=== PATIENT | female | born 1985 | race Caucasian/White ===

== ENCOUNTER 2020-07-29 09:55 | Emergency (ER) | payer OTHER ==
[~2020-07-29] VITALS: Ht 160 cm; Wt 51.4 kg
--- NOTE | 2020-07-29 10:17 | PHYS DOC ---
Past History Past Medical History: Anxiety, Depression, Endometriosis Alcohol Use: None General Adult EDM: Chief Complaint: BACK PAIN OR INJURY HPI: HPI: 34-year-old female past medical history significant for anxiety/depression and endometriosis, presents to the ED with complaints of low back pain (point to her coccyx) that is sharp and radiates up to the base of her lumbar spine for the past 2 days. Reports paresthesias in her left buttock when she sits down in a seated position or is walking for prolonged period of time (is currently lying in right lateral recumbent position). No relief with hydrocodone that she took at 2 AM. Denies any trauma, falls, increased physical activity or heavy lifting, straddle injury or prior back pain. Has never had these symptoms before. Denies any IV drug use, immunocompromised state including diabetes or cancer, IV drug use, incarceration. No associated fever, saddle anesthesia, urinary or bowel retention or incontinence. Moved to [place] from [place] 1 year ago. PCP is with [facility] and prescribes her 30 tablets of hydrocodone every month, maximum of 2 tablets/day, qam/qhs. Routinely uses all her hydrocodone every month - reports no intolerance/relieves her endometriosis pain. No known family history of cancer or malignancy. Mother with history of iron deficiency anemia. Reports foul-smelling vaginal discharge 2 weeks ago that has resolved. Reports metromenorrhagia and is on daily control pills, " with breakthrough bleeding, I never take the sugar ones." Reports abdominal/pelvic cramping which is consistent with her typical endometriosis. Also reports loose stools routinely with vaginal bleeding. No recent antibiotics in the past 90 days. Review of Systems: Review of Systems: Constitutional: Denies fever or chills or flulike symptoms Eyes: Denies change in visual acuity HENT: Denies nasal congestion or sore throat Respiratory: Denies cough or shortness of breath Cardiovascular: Denies chest pain or edema GI: Denies nausea, vomiting, bloody stools or : Denies dysuria, hematuria or abnormal vaginal discharge itching or odor Musculoskeletal: Denies joint pain or swelling no CVA tenderness Integument: Denies rash or diaphoresis Neurologic: Denies headache, neck stiffness, focal weakness or sensory changes Endocrine: Denies polyuria or polydipsia Lymphatic: Denies swollen glands Psychiatric: Denies depression or anxiety Allergies: Allergies: Allergies Coded Allergies Type Severity Reaction Last Updated Verified Penicillins Allergy Unknown 07/29/20 Yes codeine Allergy Unknown 07/29/20 Yes Physical Exam: PE: Constitutional: Well developed, well nourished, no acute distress, non-toxic appearance. HENT: Normocephalic, atraumatic, Eyes: EOMI, conjunctiva normal, no discharge. Neck: Normal range of motion, supple, Cardiovascular: S1/2 present, regular rhythm Lungs & Thorax: Speaking in full sentences, bilateral equal chest rise, no tachypnea or increased work of breathing Abdomen: soft, no tenderness, Skin: Warm, dry, no erythema, no rash. [] Back: No tenderness, no CVA tenderness. [] Extremities: No tenderness, no cyanosis, no lower extremity edema Neurologic: Alert and oriented X 3, normal motor function, normal sensory function, no focal deficits noted. [] Psychologic: Affect normal, judgement normal, mood normal. [] Pelvic: Chaperoned by RN, external genitalia normal, no vaginal bleeding, normal nonmalodorous [color] discharge, cervical os closed, no cervical erythema, no CMT or adnexal tenderness, tolerated exam well Current Patient Data: Vital Signs: Vital Signs Date Time Temp Pulse Resp B/P (MAP) Pulse Ox O2 Delivery O2 Flow Rate FiO2 07/29/20 09:55 98.2 103 16 143/78 (99) 100 Room Air EKG: EKG: [] Radiology/Procedures: Radiology/Procedures: IMAGING REPORT Signed PATIENT: EVANGELINA CACERES ACCOUNT: [id number] : 1985 LOCATION: ER AGE: 34 SEX: F EXAM STATUS: REG ER ORD. PHYSICIAN: LEATHA GARG DO REASON: focal coccyx pain PROCEDURE: SACRUM & COCCYX 3V EXAM: XR SACRUM AND COCCYX 2+VIEWS 07/29/2020 10:37 AM CLINICAL INDICATION: Coccyx pain COMPARISON: None TECHNIQUE: 3 views of the sacrum and coccyx FINDINGS: No acute fracture. Sacroiliac joints and lower lumbar spine are no rmal. The hips and pubic symphysis are normal. IMPRESSION: Normal radiographic sacrum and coccyx. Electronically signed by: Evangelina Thomas MD (07/29/2020 10:59 AM) [id number] DICTATED AND SIGNED BY: EVANGELINA THOMAS MD DATE: 07/29/20 1057 CC: PCP,UNKNOWN; LEATHA GARG DO ~MTH0 0 IMAGING REPORT Signed PATIENT: EVANGELINA CACERES ACCOUNT: [id number] : 1985 LOCATION: ER AGE: 34 SEX: F EXAM STATUS: REG ER ORD. PHYSICIAN: LEATHA GARG DO REASON: cocyx back/lower abd pain PROCEDURE: CT ABD PELV W/ IV CONTRST ONLY EXAM: Abdomen and pelvis CT with intravenous contrast. HISTORY: Pain. TECHNIQUE: Computed tomographic images of the abdomen and pelvis were obtained following the administration of intravenous contrast. Multiplanar reformatting was performed. *One or more of the following individualized dose reduction techniques were utilized for this examination: 1. Automated exposure control. 2. Adjustment of the mA and/or kV according to patient size. 3. Use of iterative reconstruction technique. COMPARISON: Pelvic sonogram obtained on the same date. FINDINGS: Evaluation of the lower thorax is unremarkable. No hepatic lesion is seen. The gallbladder, pancreas, spleen, adrenal glands and kidneys are unremarkable. There is no appendicitis. There is no bowel obstruction. There is no abnormal bowel wall thickening. The uterus is unremarkable. There are small bilateral ovarian follicles and there is trace pelvic free fluid. This is within physiologic limits. There is an incidental left-sided inferior vena cava. There are is a varicosity within the right lumbar paraspinal musculature which is likely related to the absence of a right-sided vena cava. There is a transitional lumbosacral segment, a normal variant. There is no suspicious or acute osseous finding. IMPRESSION: No acute abdominal or pelvic finding. Electronically signed by: Deedee Carolina MD (07/29/2020 1:30 PM) [id number] DICTATED AND SIGNED BY: DEEDEE CAROLINA MD DATE: 07/29/20 1326 CC: PCP,UNKNOWN; LEATHA GARG DO ~MTH0 0 Signed PATIENT: EVANGELINA CACERES ACCOUNT: [id number] : 1985 LOCATION: ER AGE: 34 SEX: F EXAM STATUS: REG ER ORD. PHYSICIAN: LEATHA GARG DO REASON: left adnexal ttp, low back pain PROCEDURE: US PELVIS W/TV EXAM: Pelvic sonogram. HISTORY: Left adnexal pain. TECHNIQUE: Transabdominal and transvaginal sonographic imaging of the pelvis was performed. COMPARISON: None. FINDINGS: The uterus measures 6.5 x 4.3 x 3.3 cm. The endometrial stripe measures 5 mm in thickness. The ovaries are normal in size and demonstrate normal blood flow. There are small antral follicles within both ovaries. No ovarian cyst or mass is seen. There is a small amount of simple free fluid within the cul-de-sac. IMPRESSION: 1. Small amount of pelvic free fluid, within physiologic limits for a premenopausal female. 2. Otherwise, unremarkable pelvic sonogram. Electronically signed by: Deedee Carolina MD (07/29/2020 1:11 PM) [id number] DICTATED AND SIGNED BY: DEEDEE CAROLINA MD DATE: 07/29/20 131 CC: PCP,UNKNOWN; LEATHA GARG DO ~MTH0 0 Heart Score: Risk Factors: Risk Factors: DM, Current or recent (<one month) smoker, HTN, HLP, family histo ry of CAD, obesity. Risk Scores: Score 0 - 3: 2.5% MACE over next 6 weeks - Discharge Home Score 4 - 6: 20.3% MACE over next 6 weeks - Admit for Clinical Observation Score 7 - 10: 72.7% MACE over next 6 weeks - Early Invasive Strategies Course & Med Decision Making: Course & Med Decision Making Pertinent Labs and Imaging studies reviewed. (See chart for details) Atraumatic coccyx radicular pain w/paresthesias. U/A no infection, trace blood/is on her menses, not . Xray imaging w/no acute process as expected. Will discharge home with strict ED return precautions were given for saddle anesthesia, urinary or bowel retention or incontinence, fever, neck stiffness, or severe pain out of proportion to exam. Encouraged urgent outpatient follow-up with [facility] and [facility]. Life-threatening processes were considered but are low suspicion at this time, given history, physical exam and ED workup. Pt was educated on all prescription medications and adverse effects. All patient's questions were answered and pt was stable at time of discharge. Life/limb-threatening differential includes but is not limited to, aortic dissection/aneurysm, cauda equina syndrome, transverse myelitis, spinal cord/epidural compression syndromes, discitis, spinal stenosis, epidural abscess or hematoma, osteomyelitis, disc herniation, surgical abdomen, stable or unstable fracture, renal/ureteral colic, sepsis, meningitis, musculoskeletal injury, traumatic injury, intraabdominal/retroperitoneal or pelvic bleeding. I spoken with the patient and her caregivers. I explained the patient's condition, diagnoses and treatment plan based on the information available to me at this time. I have answered the patient and her caregiver's questions and addressed any concerns. The patient and her caregivers have a good understanding of patient's diagnosis, condition and treatment plan as can be expected at this point. Vital signs have been stable. Patient's condition is stable and appropriate for discharge from the emergency department. Patient will pursue further outpatient evaluation with primary care physician or other designated or consulting physician as outlined in the discharge instructions. The patient and/or caregivers are agreeable to this plan of care and follow-up instructions have been explained in detail. The patient and/or caregivers have received these instructions in written form and have expressed an understanding of the discharge instructions. The patient and/or caregivers a re aware that any significant change of condition or worsening of symptoms should prompt immediate return to this or the closest emergency department or call to 911. Baljit Disclaimer: Baljit Disclaimer: This electronic medical record was generated, in whole or in part, using a voice recognition dictation system. Departure Departure: Impression: Primary Impression: Back pain Additional Impression: Endometriosis Disposition: 01 DC HOME SELF CARE/HOMELESS Condition: STABLE Referrals: PCP,UNKNOWN (PCP) FOLLOW UP WITH FAMILY MEDICINE: [facility], [facility] [address] [place] [address], [facility] Instructions: Back Pain, Adult, Endometriosis Additional Instructions: FOLLOW UP WITH OBGYN: [facility] [employer] [facility] [address] [place] [address] EMERGENCY DEPARTMENT GENERAL DISCHARGE INSTRUCTIONS Thank you for coming to [facility] (ED) today and trusting us with you care. We trust that you had a positivie experience in our Emergency Department. If you wish to speak to the department management, you may call the director at [phone]. YOUR FOLLOW UP INSTRUCTIONS ARE FOLLOWS: 1. Do you have a private Doctor? If you do not have a private doctor, please ask for a resource list of physicians or clinics that may be able to assist you with follow up care. 2. The Emergency Physician has interpreted your x-rays. The X-Ray specialist will also review them. If there is a change in the findings, you will be notified in 48 hours when at all possible. 3. A lab test or culture has been done, your results will be reviewed and you will be notified if you need a change in treatment. ADDITIONAL INSTRUCTIONS AND INFORMATION: 1. Your care today has been supervised by a physician who is specially trained in emergency care. Many problems require more than one evaluation for a complete diagnosis and treatment. We recommend that you schedule your follow up appointment as recommended to ensure complete treatment of you illness or injury. If you are unable to obtain follow up care and continue to have a problem, or if your condition worsens, we recommend that you return to the ED. 2. We are not able to safely determine your condition over the phone nor are we able to give sound medical advice over the phone. For these safety reasons, if you call for medical advice we will ask you to come to the ED for further evaluation. 3. If you have any questions regarding these discharge instructions please call the ED at [phone]. SAFETY INFORMATION: In the interest of safety, wellness, and injury prevention; we encourage you to wear your sealbelt, if you smoke; quite smoking, and we encourage family to use a p rotective helmet for bicycling and other sporting events that present an increased risk for head injury. IF YOUR SYMPTOMS WORSEN OR NEW SYMPTOMS DEVELOP, OR YOU HAVE CONCERNS ABOUT YOUR CONDITION; OR IF YOUR CONDITION WORSENS WHILE YOU ARE WAITING FOR YOUR FOLLOW UP APPOINTMENT; EITHER CONTACT YOUR PRIMARY CARE DOCTOR, THE PHYSICIAN WHOSE NAME AND NUMBER YOU WERE GIVEN, OR RETURN TO THE ED IMMEDIATELY. Scripts Cyclobenzaprine Hcl (CYCLOBENZAPRINE HCL) 5 Mg Tablet 1 TAB PO TID for pain, #20 TAB Prov: LEATHA GARG DO 07/29/20 LEATHA GARG DO Jul 29, 2020 10:17
[2020-07-29] MEDS ORDERED: GABAPENTIN 100 MG CAPSULE. PO ONE (10:30)
[2020-07-29] MEDS ORDERED: KETOROLAC 15 MG/ML VIAL. IM ONE (10:30)
[2020-07-29] MEDS ORDERED: ACETAMINOPHEN 325 MG TABLET PO ONE (10:30)
[2020-07-29 10:53] LABS: BACTERIA,URINE 0 /HPF (0-FEW); BILIRUBIN,URINE NEG (NEG); CLARITY,URINE CLEAR; COLOR,URINE STRAW; GLUCOSE,URINE NEG (NEG); NITRITE,URINE NEG (NEG); RBC,URINE 0 /HPF (0-2); SQUAMOUS EPITHELIAL CELL,UR FEW /LPF; UROBILINOGEN,URINE 0.2 mg/dL (0.2 mg/dL); WBC,URINE 0 /HPF (0-4)
[2020-07-29] MEDS ORDERED: LIDOCAINE (700MG/PATCH) PATCH. TD SCH (11:00)
--- NOTE | 2020-07-29 11:01 | RAD ---
EXAM: XR SACRUM AND COCCYX 2+VIEWS 07/29/2020 10:37 AM CLINICAL INDICATION: Coccyx pain COMPARISON: None TECHNIQUE: 3 views of the sacrum and coccyx FINDINGS: No acute fracture. Sacroiliac joints and lower lumbar spine are normal. The hips and pubic symphysis are normal. IMPRESSION: Normal radiographic sacrum and coccyx. Electronically signed by: Evangelina Thomas MD (07/29/2020 10:59 AM) [id number]
[2020-07-29] MEDS ORDERED: ONDANSETRON 4MG ODT 4TABLET STARTPACK. PO ONE (11:10)
[2020-07-29] MEDS ORDERED: ONDANSETRON ODT 4 MG TAB.RAPDIS ONE (11:10)
[2020-07-29] MEDS ORDERED: ONDANSETRON ODT 4 MG TAB.RAPDIS PO ONE (11:15)
[2020-07-29] MEDS ORDERED: IOHEXOL 300 MG/ML 75 ML VIAL. IV ONE (13:00)
[2020-07-29] MEDS ORDERED: CONTRAST GIVEN. MC PRN (13:00)
[2020-07-29 13:01] LABS: BASO % 1 % (0-3); EOS % 1 % (0-3); HEMATOCRIT 39.6 % (36.0-47.0); HEMOGLOBIN 13.5 g/dL (12.0-15.5); LYMPH # 1.3 x10^3/uL (1.0-4.8); LYMPH % 20 % (24-48); MEAN CORPUSCULAR HEMOGLOBIN 32 pg (25-35); MEAN CORPUSCULAR HGB CONC 34 g/dL (31-37); MEAN CORPUSCULAR VOLUME 93 fL (79-100); MONO # 0.4 x10^3/uL (0.0-1.1); MONO % 6 % (0-9); NEUT # 4.9 x10^3uL (1.8-7.7); NEUT % 73 % (31-73); PLATELET COUNT 343 x10^3/uL (140-400); RED BLOOD COUNT 4.28 x10^6/uL (3.50-5.40); RED CELL DISTRIBUTION WIDTH 12.7 % (11.5-14.5); WHITE BLOOD COUNT 6.6 x10^3/uL (4.0-11.0)
[2020-07-29 13:08] LABS: CALCIUM 8.7 mg/dL (8.5-10.1); CREATININE 0.8 mg/dL (0.6-1.0); GFR 83.1; POTASSIUM 3.9 mmol/L (3.5-5.1)
[2020-07-29 13:14] LABS: ALBUMIN 3.9 g/dL (3.4-5.0); ALBUMIN/GLOBULIN RATIO 1.1 (1.0-1.7); TOTAL BILIRUBIN 0.3 mg/dL (0.2-1.0); TOTAL PROTEIN 7.6 g/dL (6.4-8.2)
--- NOTE | 2020-07-29 13:14 | RAD ---
EXAM: Pelvic sonogram. HISTORY: Left adnexal pain. TECHNIQUE: Transabdominal and transvaginal sonographic imaging of the pelvis was performed. COMPARISON: None. FINDINGS: The uterus measures 6.5 x 4.3 x 3.3 cm. The endometrial stripe measures 5 mm in thickness. The ovaries are normal in size and demonstrate normal blood flow. There are small antral follicles wi thin both ovaries. No ovarian cyst or mass is seen. There is a small amount of simple free fluid with in the cul-de-sac. IMPRESSION: 1. Small amount of pelvic free fluid, within physiologic limits for a premenopausal female. 2. Otherwise, unremarkable pelvic sonogram. Electronically signed by: Deedee Bryson MD (07/29/2020 1:11 PM) [id number]
--- NOTE | 2020-07-29 13:33 | RAD ---
EXAM: Abdomen and pelvis CT with intravenous contrast. HISTORY: Pain. TECHNIQUE: Computed tomographic images of the abdomen and pelvis were obtained following the administ ration of intravenous contrast. Multiplanar reformatting was performed. *One or more of the following individualized dose reduction techniques were utilized for this examina tion: 1. Automated exposure control. 2. Adjustment of the mA and/or kV according to patient size. 3. Use of iterative reconstruction technique. COMPARISON: Pelvic sonogram obtained on the same date. FINDINGS: Evaluation of the lower thorax is unremarkable. No hepatic lesion is seen. The gallbladder, pancreas, spleen, adrenal glands and kidneys are unremarkable. There is no appendicitis. There is no bowel obstruction. There is no abnormal bowel wall thickening. The uterus is unremarkable. There are small bilateral ovarian follicles and there is trace pelvic free fluid. This is within physiologic l imits. There is an incidental left-sided inferior vena cava. There are is a varicosity within the rig ht lumbar paraspinal musculature which is likely related to the absence of a right-sided vena cava. T here is a transitional lumbosacral segment, a normal variant. There is no suspicious or acute osseous finding. IMPRESSION: No acute abdominal or pelvic finding. Electronically signed by: Deedee Bryson MD (07/29/2020 1:30 PM) [id number]
[2020-07-29] MEDS ORDERED: CYCL5TAB PO (14:49)
[2020-07-29] MEDS ORDERED: oxyCODONE IR 5 MG TABLET PO PRN (15:00)
[2020-07-29 15:18] VITALS: BP 138/70
[2020-07-29] MEDS ORDERED: PATCH REMOVAL. MC SCH (21:00)
== END 2020-07-29 15:15 | disposition home or self-care (01) ==
LOC: ER 09:55
DX: M54.5 Low back pain (principal); N80.9 Endometriosis, unspecified; R20.2 Paresthesia of skin; F41.9 Anxiety disorder, unspecified; F32.9 Major depressive disorder, single episode, unspecified
CPT/HCPCS: 36415; 72220; 74177; 76830; 76856; 80053; 81001; 81025; 82550; 85025; 96372; 99285; J1885; Q0162; Q9967

== ENCOUNTER 2021-07-30 19:17 | Emergency (ER) | payer OTHER ==
[~2021-07-30] VITALS: Ht 160 cm; Wt 51.4 kg
[~2021-07-30 19:17] MED LIST: CYCL5TAB PO
[2021-07-30 20:08] LABS: U PREG PATIENT NEGATIVE (NEG)
[2021-07-30 20:12] LABS: BASO % 1 % (0-3); EOS # 0.1 x10^3/uL (0.0-0.7); EOS % 2 % (0-3); HEMATOCRIT 33.5 % (36.0-47.0); HEMOGLOBIN 11.4 g/dL (12.0-15.5); LYMPH # 2.3 x10^3/uL (1.0-4.8); LYMPH % 31 % (24-48); MEAN CORPUSCULAR HEMOGLOBIN 31 pg (25-35); MEAN CORPUSCULAR HGB CONC 34 g/dL (31-37); MEAN CORPUSCULAR VOLUME 91 fL (79-100); MONO # 0.6 x10^3/uL (0.0-1.1); MONO % 8 % (0-9); NEUT # 4.3 x10^3uL (1.8-7.7); NEUT % 58 % (31-73); PLATELET COUNT 336 x10^3/uL (140-400); RED BLOOD COUNT 3.69 x10^6/uL (3.50-5.40); RED CELL DISTRIBUTION WIDTH 12.5 % (11.5-14.5); WHITE BLOOD COUNT 7.4 x10^3/uL (4.0-11.0)
[2021-07-30 20:16] LABS: CLARITY,URINE CLEAR; COLOR,URINE YELLOW; GLUCOSE,URINE NEG (NEG); NITRITE,URINE NEG (NEG); UROBILINOGEN,URINE 0.2 mg/dL (0.2 mg/dL)
[2021-07-30 20:26] LABS: CALCIUM 8.2 mg/dL (8.5-10.1); CREATININE 0.6 mg/dL (0.6-1.0); GFR 115.1; POTASSIUM 3.5 mmol/L (3.5-5.1)
[2021-07-30 20:31] LABS: ALBUMIN 3.5 g/dL (3.4-5.0); TOTAL BILIRUBIN 0.1 mg/dL (0.2-1.0)
--- NOTE | 2021-07-30 21:44 | EKG ---
[address] [address] Test Date: 2021-07-30 Test Time: 20:29:27 Pat Name: MARIELA CACERES Department: Room: Gender: F [employer]er: : 1985 Requested By: SIENA WARD Order Number: [id number] Reading MD: Ricky Duran Measurements Intervals [place] Rate: 87 P: 43 MD: 160 QRS: 26 QRSD: 80 T: 15 QT: 360 QTc: 434 Interpretive Statements SINUS RHYTHM Electronically Signed On 07-31-2021 8:24:17 [employer] by Ricky Duran
[2021-07-30 22:01] VITALS: BP 135/78
--- NOTE | 2021-07-30 22:07 | PHYS DOC ---
Past History Past Medical History: Anxiety, Depression, Endometriosis (SIENA WARD APRN) Past Surgical History: No Surgical History (SIENA WARD APRN) Alcohol Use: None (SIENA WARD APRN) General Adult EDM: Chief Complaint: VAGINAL BLEEDING HPI: HPI: Patient is a[] 35-year-old female presents with concerns of vaginal bleeding. Patient states that she had intercourse 2 days ago and when she stood up she immediately started having lower abdominal pain. Patient reports that the pain lasted about 30 minutes and went away. Patient states the next day she started bleeding and it was not appropriate time for her period. Patient states that she has been changing her tampon every 2-3 hours. Denies dizziness, shortness of breath, chest pain. Denies dizziness, shortness of breath, chest pain. Denies dysuria, frequency, abnormal discharge or odor. History of anxiety, depression, endometriosis. (SIENA WARD APRN) Review of Systems: Review of Systems: ROS At least 10 ROS systems have been reviewed and are negative except as documented in the HPI. General: Negative except as outlined in HPI above. Skin: Negative except as outlined in HPI above. HEENT: Negative except as outlined in HPI above. Neck: Negative except as outlined in HPI above. Respiratory: Negative except as outlined in HPI above.. Cardiovascular: Negative except as outlined in HPI above. Abdomen: Negative except as outlined in HPI above. : Negative except as outlined in HPI above. Back/MSK: Negative except as outlined in HPI above. Neuro: Negative except as outlined in HPI above. Psych: Negative except as outlined in HPI above. (SIENA WARD APRN) Allergies: Allergies: Allergies Coded Allergies Type Severity Reaction Last Updated Verified Penicillins Allergy Unknown 07/29/20 Yes codeine Allergy Unknown 07/29/20 Yes (SIENA WARD APRN) Physical Exam: PE: Constitutional: Well developed, well nourished, no acute distress, non-toxic ap pearance. [] HENT: Normocephalic, atraumatic, bilateral external ears normal, oropharynx moist, no oral exudates, nose normal. [] Eyes: PERRLA, EOMI, conjunctiva normal, no discharge. [] Neck: Normal range of motion, no tenderness, supple, no stridor. [] Cardiovascular:Heart rate regular rhythm, no murmur [] Lungs & Thorax: Bilateral breath sounds clear to auscultation [] Abdomen/vaginal: Bowel sounds normal, soft, no tenderness, no masses, no pulsatile masses. No signs of trauma or lesions vaginally. Skin: Warm, dry, no erythema, no rash. [] Back: No tenderness, no CVA tenderness. [] Extremities: No tenderness, no cyanosis, no clubbing, ROM intact, no edema. [] Neurologic: Alert and oriented X 3, normal motor function, normal sensory function, no focal deficits noted. [] Psychologic: Affect normal, judgement normal, mood normal. [] (SIENA WARD APRN) Current Patient Data: Labs: Laboratory Tests Test 07/30/21 18:00 07/30/21 19:47 07/30/21 19:55 Urine Collection Type Unknown Urine Color Yellow Urine Clarity Clear Urine pH 6.5 Urine Specific [place] 1.025 Urine Protein Neg (NEG-TRACE) Urine Glucose (UA) Neg mg/dL (NEG) Urine Ketones (Stick) Neg mg/dL (NEG) Urine Blood Trace (NEG) Urine Nitrite Neg (NEG) Urine Bilirubin Neg (NEG) Urine Urobilinogen Dipstick 0.2 mg/dL (0.2 mg/dL) Urine Leukocyte Esterase Neg (NEG) Urine Test Negative (NEG) POC Urine HCG, Qualitative hcg negative (Negative) White Blood Count 7.4 x10^3/uL (4.0-11.0) Red Blood Count 3.69 x10^6/uL (3.50-5.40) Hemoglobin 11.4 g/dL (12.0-15.5) L Hematocrit 33.5 % (36.0-47.0) L Mean Corpuscular Volume 91 fL (79-100) Mean Corpuscular Hemoglobin 31 pg (25-35) Mean Corpuscular Hemoglobin Concent 34 g/dL (31-37) Red Cell Distribution Width 12.5 % (11.5-14.5) Platelet Count 336 x10^3/uL (140-400) Neutrophils (%) (Auto) 58 % (31-73) Lymphocytes (%) (Auto) 31 % (24-48) Monocytes (%) (Auto) 8 % (0-9) Eosinophils (%) (Auto) 2 % (0-3) Basophils (%) (Auto) 1 % (0-3) Neutrophils # (Auto) 4.3 x10^3uL (1.8-7.7) Lymphocytes # (Auto) 2.3 x10^3/uL (1.0-4.8) Monocytes # (Auto) 0.6 x10^3/uL (0.0-1.1) Eosinophils # (Auto) 0.1 x10^3/uL (0.0-0.7) Basophils # (Auto) 0.0 x10^3/uL (0.0-0.2) Sodium Level 136 mmol/L (136-145) Potassium Level 3.5 mmol/L (3.5-5.1) Chloride Level 104 mmol/L (98-107) Carbon Dioxide Level 25 mmol/L (21-32) Anion Gap 7 (6-14) Blood Urea Nitrogen 10 mg/dL (7-20) Creatinine 0.6 mg/dL (0.6-1.0) Estimated GFR (Cockcroft-Gault) 115.1 BUN/Creatinine Ratio 17 (6-20) Glucose Level 112 mg/dL (70-99) H Calcium Level 8.2 mg/dL (8.5-10.1) L Total Bilirubin 0.1 mg/dL (0.2-1.0) L Aspartate Amino Transferase (AST) 15 U/L (15-37) Alanine Aminotransferase (ALT) 25 U/L (14-59) Alkaline Phosphatase 74 U/L (46-116) Total Protein 7.0 g/dL (6.4-8.2) Albumin 3.5 g/dL (3.4-5.0) Albumin/Globulin Ratio 1.0 (1.0-1.7) Vital Signs: Vital Signs Date Time Temp Pulse Resp B/P (MAP) Pulse Ox O2 Delivery O2 Flow Rate FiO2 07/30/21 20:59 86 16 138/81 (100) 98 Room Air 07/30/21 19:29 98.2 (SIENA WARD APRN) EKG: EKG: [] (SIENA WARD APRN) Radiology/Procedures: Radiology/Procedures: [] (SIENA WARD APRN) Heart Score: C/O Chest Pain: No Risk Factors: Risk Factors: DM, Current or recent (<one month) smoker, HTN, HLP, family history of CAD, obesity. Risk Scores: Score 0 - 3: 2.5% MACE over next 6 weeks - Discharge Home Score 4 - 6: 20.3% MACE over next 6 weeks - Admit for Clinical Observation Score 7 - 10: 72.7% MACE over next 6 weeks - Early Invasive Strategies (SIENA WARD APRN) Course & Med Decision Making: Course & Med Decision Making Pertinent Labs and Imaging studies reviewed. (See chart for details) [] 35-year-old female presents with concerns of vaginal bleeding. Patient states that she had intercourse 2 days ago and when she stood up she immediately started having lower abdominal pain. Denying pain at this time. Patient states the next day she started bleeding and it was not appropriate time for her period. Patient states that she has been changing her tampon every 2-3 hours. Work-up in ER consisted of urinalysis, labs, urine test. Vaginal exam unremarkable. No signs of lesions or trauma. All labs unremarkable. H&H is within normal range. test is negative. Urine negative for infection. Patient is denying pain. Patient's main concern was that she was possibly losing too much blood. Discussed return precautions with patient. Patient states that she understands. Patient is hemodynamically stable upon disposition . (SIENA WARD APRN) Course & Med Decision Making Did not see or evaluate patient. Did not discuss patient with [employer]PERVISOR. Generally agree with [employer] SUPERVISOR's work-up and disposition per note (COLLETTE CLARK MD) Dragon Disclaimer: Dragon Disclaimer: This electronic medical record was generated, in whole or in part, using a voice recognition dictation system. (SIENA WARD APRN) Departure Departure: Impression: Primary Impression: Vaginal bleeding Disposition: HOME / SELF CARE / HOMELESS Condition: STABLE Referrals: NON,STAFF (PCP) Patient Instructions: Abnormal Uterine Bleeding Additional Instructions: Return to emergency room if you have worsening symptoms or concerns such as increasing vaginal bleeding, chest pain, shortness of breath, dizziness EMERGENCY DEPARTMENT GENERAL DISCHARGE INSTRUCTIONS Thank you for coming to [facility] (ED) today and trusting us with you care. We trust that you had a positivie experience in our Emergency Department. If you wish to speak to the department management, you may call the director at [phone]. YOUR FOLLOW UP INSTRUCTIONS ARE FOLLOWS: 1. Do you have a private Doctor? If you do not have a private doctor, please ask for a resource list of physicians or clinics that may be able to assist you with follow up care. 2. The Emergency Physician has interpreted your x-rays. The X-Ray specialist will also review them. If there is a change in the findings, you will be notified in 48 hours when at all possible. 3. A lab test or culture has been done, your results will be reviewed and you will be notified if you need a change in treatment. ADDITIONAL INSTRUCTIONS AND INFORMATION: 1. Your care today has been supervised by a physician who is specially trained in emergency care. Many problems require more than one evaluation for a complete diagnosis and treatment. We recommend that you schedule your follow up appointment as recommended to ensure complete treatment of you illness or injury. If you are unable to obtain follow up care and continue to have a problem, or if your condition worsens, we recommend that you return to the ED. 2. We are not able to safely determine your condition over the phone nor are we able to give sound medical advice over the phone. For these safety reasons, if you call for medical advice we will ask you to come to the ED for further evaluation. 3. If you have any questions regarding these discharge instructions please call the ED at [phone]. SAFETY INFORMATION: In the interest of safety, wellness, and injury prevention; we encourage you to wear your sealbelt, if you smoke; quite smoking, and we encourage family to use a protective helmet for bicycling and other sporting events that present an increased risk for head injury. IF YOUR SYMPTOMS WORSEN OR NEW SYMPTOMS DEVELOP, OR YOU HAVE CONCERNS ABOUT YOUR CONDITION; OR IF YOUR CONDITION WORSENS WHILE YOU ARE WAITING FOR YOUR FOLLOW UP APPOINTMENT; EITHER CONTACT YOUR PRIMARY CARE DOCTOR, THE PHYSICIAN WHOSE NAME AND NUMBER YOU WERE GIVEN, OR RETURN TO THE ED IMMEDIATELY. . SIENA WARD APRN Jul 30, 2021 22:07 COLLETTE CLARK MD Jul 30, 2021 22:45
== END 2021-07-30 22:07 | disposition home or self-care (01) ==
LOC: ER 19:17
DX: N93.8 Other specified abnormal uterine and vaginal bleeding (principal); Z88.0 Allergy status to penicillin; Z88.5 Allergy status to narcotic agent
CPT/HCPCS: 36415; 80053; 81003; 81025; 85025; 93005; 99284